=== PATIENT | female | born 1980 | race Caucasian/White ===

== ENCOUNTER 2016-06-03 09:45 | Emergency (ER) | payer OTHER ==
[~2016-06-03 09:45] MED LIST: ALLEGRA-D1 TAB PO; CLINDAMYCIN HC300 MG PO; MOTRIN600 MG PO; NORCO 10/325 TA1 TAB PO; SILVADENE20 GM TP
[2016-06-03] MEDS ORDERED: SINGULAIR10 M1 PO (10:19)
[2016-06-03] MEDS ORDERED: CYCLOBENZAPRINE10 M1 PO (10:28)
== END 2016-06-03 10:51 ==
LOC: EDMED 09:45
DX: S16.1XXA Strain of muscle, fascia and tendon at neck level, initial encounter (principal); Z88.0 Allergy status to penicillin; V43.52XA Car driver injured in collision with other type car in traffic accident, initial encounter